=== PATIENT | female | born 1975 | race Caucasian/White ===

== ENCOUNTER 2016-11-12 16:49 | Emergency (ER) | payer BC ==
[~2016-11-12] VITALS: Ht 167.6 cm; Wt 113.4 kg
[~2016-11-12 16:49] MED LIST: AUGMENTIN PO; BACTRIM DS TABL1 TA1; BACTRIM DS TABL1 TA1 PO; BACTRIM DS TABL1 TA2 PO; CELEXA; CELEXA10 MG; PREDNISONE PO
== END 2016-11-12 18:03 | disposition home or self-care (01) ==
LOC: SED 16:49
DX: K64.5 Perianal venous thrombosis (principal); K21.9 Gastro-esophageal reflux disease without esophagitis; F41.9 Anxiety disorder, unspecified
CPT/HCPCS: 46083; 99283